=== PATIENT | male | born 1985 | race African-American/Black ===

== ENCOUNTER 2022-12-13 11:36 | Emergency (ER) | payer MEDICAID, OTHER ==
[~2022-12-13] VITALS: Ht 165.1 cm; Wt 61.0 kg
[2022-12-13] MEDS ORDERED: IBUP-2029 MT (17:08)
[2022-12-13] MEDS ORDERED: IBUPROFEN 600MG TABLET PO ONE (17:15)
[2022-12-13 17:29] VITALS: BP 127/76
== END 2022-12-13 17:30 | disposition home or self-care (01) ==
LOC: ER 11:36
DX: M79.672 Pain in left foot (principal); M79.671 Pain in right foot; M25.572 Pain in left ankle and joints of left foot; M25.571 Pain in right ankle and joints of right foot
CPT/HCPCS: 99282